=== PATIENT | male | born 1960 | race Caucasian/White ===

== ENCOUNTER 2018-10-26 13:52 | Emergency (ER) | payer SELFPAY ==
[~2018-10-26] VITALS: Ht 170.2 cm; Wt 54.4 kg
--- NOTE | 2018-10-26 14:00 | NUR ---
Dr Felix at the bedside for MSE.
[2018-10-26] MEDS ORDERED: OLANZAPINE 10 MG VIAL IM ONE ×4 (14:15→18:15)
[2018-10-26 14:38] LABS: BASOPHILS # (AUTO) 0.1 K/uL (0.0-8.0); BASOPHILS % (AUTO) 1.4 % (0.0-2.0); EOSINOPHILS # (AUTO) 0.1 K/uL (0.0-0.7); EOSINOPHILS % (AUTO) 0.9 % (0.0-7.0); HEMATOCRIT 42.9 % (36.7-47.1); HEMOGLOBIN 14.4 g/dL (12.5-16.3); LYMPHOCYTES % (AUTO) 30.2 % (20.5-51.5); MEAN CORPUSCULAR HEMOGLOBIN 30.9 uug (23.8-33.4); MEAN CORPUSCULAR HGB CONC 34 g/dL (32.5-36.3); MONOCYTES # (AUTO) 0.7 K/uL (2.0-10.0); NEUTROPHILS # (AUTO) 3.9 K/uL (1.8-8.9); NEUTROPHILS % (AUTO) 57.5 % (38.5-71.5); PLATELET COUNT (AUTO) 220 K/uL (152-348); RED BLOOD CELL COUNT(AUTO) 4.67 MIL/uL (4.06-5.63); WHITE BLOOD COUNT (AUTO) 6.7 K/uL (3.6-10.2)
[2018-10-26 14:48] LABS: CARBON DIOXIDE 21 mmol/L (21-32); CHLORIDE 108 mmol/L (98-107); GLUCOSE 93 mg/dL (74-106); POTASSIUM 3.6 mmol/L (3.5-5.1); UREA NITROGEN, BLOOD 6 mg/dL (7-18)
[2018-10-26 14:52] LABS: ALANINE AMINOTRANSFERASE 23 U/L (16-63); ALKALINE PHOSPHATASE 54 U/L (50-136); ASPARTATE AMINOTRANSFERASE 20 U/L (15-37); BILIRUBIN,DIRECT 0.1 mg/dL (0.0-0.2); BILIRUBIN,TOTAL 0.2 mg/dL (0.2-1.0); TOTAL PROTEIN, SERUM 6.9 g/dL (6.4-8.2)
[2018-10-26 14:56] LABS: ACETAMINOPHEN < 2.0 ug/mL (10-30)
[2018-10-26 14:57] LABS: ETHANOL 298 MG/DL (0-0)
--- NOTE | 2018-10-26 15:04 | NUR ---
Urine collected and sent to LAB, no c/o nausea/vomitting.
[2018-10-26 15:10] LABS: *BILIRUBIN,URIN NEGATIVE (NEGATIVE); *BLOOD, URINE NEGATIVE (NEGATIVE); *CLARITY,URINE CLEAR (CLEAR); *COLOR,URINE YELLOW (YELLOW); *KETONES,URINE NEGATIVE (NEGATIVE); *UROBILINOGEN,URINE 0.2 E.U./dl (NORMAL); LEUKOCYTE ESTERASE ,URINE NEGATIVE (NEGATIVE); NITRITE, URINE NEGATIVE (NEGATIVE); UGLUCOSE NEGATIVE (NEGATIVE)
[2018-10-26 15:16] LABS: THYROID STIMULATING HORMONE 0.562 mIU/mL (0.358-3.740)
[2018-10-26 15:31] LABS: *AMPHETAMINE, URINE NEGATIVE (NEGATIVE); *BARBITURATE, URINE NEGATIVE (NEGATIVE); *CANNABINOID, URINE POSITIVE (NEGATIVE); *COCCAINE, URINE NEGATIVE (NEGATIVE); *OPIATE, URINE NEGATIVE (NEGATIVE); *PHENCYCLIDINE SCREEN,URINE NEGATIVE (NEGATIVE)
--- NOTE | 2018-10-26 15:52 | NUR ---
Assissted pt to bathroom, unsteady gait. Help back to bed, remaines disoriented.
--- NOTE | 2018-10-26 16:31 | NUR ---
Patient is resting comfortably in bed with eyes closed, NAD noted.
--- NOTE | 2018-10-26 18:13 | NUR ---
Pt becomes very agitated and aggresive toward staff, stating he needs to leave.
[2018-10-26] MEDS ORDERED: LORAZEPAM 2 MG/1 ML VIAL IM ONE ×2 (18:30→18:45)
--- NOTE | 2018-10-26 18:30 | NUR ---
Pt placed on 4 point restraines, per md order. 1 to 1 sitter at the bedside.
[2018-10-26] MEDS ORDERED: LORAZEPAM 2 MG/1 ML VIAL ONE (18:32)
[2018-10-26] MEDS ORDERED: HALOPERIDOL LACTATE 5 MG/1 ML VIAL ONE (18:39)
[2018-10-26] MEDS ORDERED: HALOPERIDOL LACTATE 5 MG/1 ML VIAL IM ONE (18:45)
--- NOTE | 2018-10-26 18:53 | NUR ---
Pt continues to yell and screams and can't contract for safety.
--- NOTE | 2018-10-26 19:05 | NUR ---
Hand off report given to night stocker RN.
--- NOTE | 2018-10-26 19:06 | NUR ---
report received from day shift RN
--- NOTE | 2018-10-26 21:02 | NUR ---
removed four point restraints. patient calm and sleeping at this time. patient soiled self and clothing with urine. Patient has been cleaned and dressed.
--- NOTE | 2018-10-26 22:34 | NUR ---
Patient observed attempting to stand from the bed. Patient is combative and resistant to care continually attempting to fight with staff stating "I can fight you," "don't come near me," and various insults and threats. Patient stated he needed to use the restroom, provided assistance with ambulation due to patient's unsteady gait. Patient nearly fell twice attempting to ambulate without assistance as he is refusing care and attempting to elope. Patient attempted to push past staff in an attempt to elope and smoke a cigarette. Due to patient's unsteady gait, labile and combative behavior to staff, SHANIQUA JOHNSON was called. ORI notified, orders received.
--- NOTE | 2018-10-27 00:15 | NUR ---
patient requested to use the restroom. Provided patient with portable urinal and removed one of the upper extremity restraint, patient became increasingly agitated and attempted to swing at me. Patient placed back on restraints. Sat patient up to help him urinate while in restraints.
--- NOTE | 2018-10-27 00:55 | NUR ---
patient requested to use restroom again. Provided patient with bedside urinal and remove one upper extremeity restraint. After removal patient became agitated and refused to use the urinal and stated "I will piss in the bed." Following that, patient shouted "Fuck you" to charge nurse. After leaving patients room, patient threw urinal to the floor.
--- NOTE | 2018-10-27 01:25 | NUR ---
Patient discharged to home in stable conditon. Written and verbal after care instructions given. Patient verbalizes understanding of instructions. Patient ambulatory with steady gait. Patient alert and oriented x3. Patient became calm after several attempts of vocalizing and orienting patient. Patient stated he wishes to walk back to his car after discharge. Patient provided with food and care prior to discharge. All personal belongings and exit care package was taken with patient.
[2018-10-27 01:30] VITALS: BP 112/75
== END 2018-10-27 01:31 | disposition home or self-care (01) ==
LOC: ER 13:52
DX: F10.129 Alcohol abuse with intoxication, unspecified (principal); Y90.8 Blood alcohol level of 240 mg/100 ml or more
CPT/HCPCS: 36415; 80048; 80076; 80307; 81001; 84443; 84484; 85025; 85730; 93005; 96372 ×4; 99284; G0480 ×2; G0481; J1630; J2060; 70030-TC; A4663; J2358